=== PATIENT | female | born 1930 | race Asian ===

== ENCOUNTER 2018-02-19 14:12 | Emergency (ER) | payer MEDICAID, MEDICARE, OTHER ==
[~2018-02-19] VITALS: Ht 142.2 cm; Wt 61.4 kg
[~2018-02-19 14:12] MED LIST: ERGO400T3 PO; GABA-529 PO; LOZARTAN PO; TYLENOL ARTHRITIS PO
[2018-02-19 18:00] VITALS: BP 174/76
== END 2018-02-19 18:23 | disposition home or self-care (01) ==
LOC: EMS 14:13
DX: M17.11 Unilateral primary osteoarthritis, right knee (principal); Z76.0 Encounter for issue of repeat prescription; I10 Essential (primary) hypertension; Z79.899 Other long term (current) drug therapy
CPT/HCPCS: 93971; 99284

== ENCOUNTER 2018-08-02 17:05 | Emergency (ER) | payer SELFPAY ==
[~2018-08-02] VITALS: Ht 149.9 cm; Wt 58.5 kg
[2018-08-02] MEDS ORDERED: LIDOCAINE 2% 5 ML JELLY TP ONE (17:45)
[2018-08-02 20:03] VITALS: BP 165/69
== END 2018-08-02 20:11 | disposition home or self-care (01) ==
LOC: EMS 17:08
DX: S01.81XA Laceration without foreign body of other part of head, initial encounter (principal); I10 Essential (primary) hypertension; W18.39XA Other fall on same level, initial encounter; Y93.89 Activity, other specified; Y92.89 Other specified places as the place of occurrence of the external cause; Y99.8 Other external cause status
CPT/HCPCS: 12011; 70450